=== PATIENT | female | born 1985 | race Caucasian/White ===

== ENCOUNTER → 2025-03-08 09:17 | Outpatient (CLI) | payer OTHER, SELFPAY ==
[2025-03-08 09:55] LABS: Add Manual Diff / Slide Review NO; Basophils Absolute Auto 100 /uL (0-100); Basophils Percent Auto 1.4 % (0-2); Eosinophils Absolute Auto 400 /uL (0-450); Eosinophils Percent Auto 10.4 % (2-4); Hematocrit 42.3 % (36-46); Hemoglobin 14.3 g/dL (12.0-16.0); Lymphocytes Absolute Auto 1000 /uL (1100-4500); Lymphocytes Percent Auto 27.9 % (25-40); Mean Corpuscular HGB Conc 33.8 % (30-36); Mean Corpuscular Volume 91.8 fL (80-100); Monocytes Absolute Auto 300 /uL (0-900); Monocytes Percent Auto 8.2 % (3-14); Neutrophils Absolute Auto 1900 /uL (1500-7000); Neutrophils Percent Auto 52.1 % (50-75); Platelet Count 204 X10^3/uL (150-400); Red Blood Cell Count 4.61 X10^6/uL (4.0-5.2); Red Cell Distribution Width 13.5 % (11.6-14.8); White Blood Cell Count 3.7 X10^3/uL (4.5-11.0)
[2025-03-08 10:03] LABS: Prothrombin Time 10.9 SECONDS (9.4-12.5)
[2025-03-08 10:06] LABS: Hemoglobin A1C% w Est Avg Glu 4.9 % (4.0-6.0); PTT Partial Thromboplastin Tim 35 SECONDS (25.1-36.5)
[2025-03-08 10:22] LABS: Alanine Aminotransferase 30 IU/L (<35); Albumin 4.3 g/dL (3.5-5.0); Albumin Globulin Ratio 1.7 (1.0-2.8); Alkaline Phosphatase 50 U/L (38-126); Aspartate Aminotransferase 32 IU/L (14-36); BUN Creatinine Ratio 19.2 (6-22); Bilirubin Total 1.1 mg/dL (0.2-1.3); Blood Urea Nitrogen 15 mg/dL (7-17); Calcium 8.9 mg/dL (8.4-10.2); Carbon Dioxide 27 mmol/L (22-32); Chloride 104 mmol/L (98-107); Cholesterol 149 mg/dL (140-199); Estimated Glomerular Filt Rate > 60 mL/min (>60); Globulin 2.5 g/dL (1.7-4.1); Glucose 89 mg/dL (70-99); HDL Cholesterol 41 mg/dL (40-60); HEMOLYSIS 15 (0-50); HEMOLYSIS < 15 (0-50); Iron 99 ug/dL (37-170); LDL Cholesterol Calculated 96 mg/dL (<100); Sodium 138 mmol/L (137-145); Total Protein 6.8 g/dL (6.3-8.2); Triglycerides 61 mg/dL (35-150)
[2025-03-08 10:33] LABS: Percent Iron Saturation 37 % (15-50); Total Iron Binding Capacity 269 ug/dL (265-497); Transferrin 212 mg/dL (206-381)
[2025-03-08 10:39] LABS: Vitamin D 25 Hydroxy (D3) 46.1 ng/mL (30.0-100.0)
[2025-03-08 10:40] LABS: Free T3, Triiodothyronine Free 3.71 pg/mL (2.77-5.27); Free T4, Direct Thyroxine 1.69 ng/dL (0.78-2.19)
[2025-03-08 10:41] LABS: Follicle Stimulating Hormone 7.64 mIU/mL; Luteinizing Hormone 4.39 mIU/mL
[2025-03-08 10:54] LABS: Thyroid Stimulating Hormone 0.783 uIU/mL (0.47-4.68)
[2025-03-08 10:56] LABS: Ferritin 31 ng/mL (6-137)
[2025-03-08 11:13] LABS: Vitamin B12 626 pg/mL (239-931)
[2025-03-08 16:40] LABS: HIV 1 & 2 Ab/Ag 4th Gen Combo NEGATIVE (NEGATIVE); Hep C Virus Ab w/Reflex Quant NEGATIVE s/c (NEGATIVE)
[2025-03-09 07:36] LABS: Thyroid Peroxidase Antibodies 267 IU/mL (0-34)
[2025-03-09 16:09] LABS: Anti Thyroglobulin Antibody <1.0 IU/mL (0.0-0.9)
== END ==
PROVIDERS: PCP Family Medicine; Referring Provider Family Medicine; Visit Provider Family Medicine
DX: Z11.59 Encounter for screening for other viral diseases (principal); R53.82 Chronic fatigue, unspecified; F32.A Depression, unspecified; E06.3 Autoimmune thyroiditis; N92.0 Excessive and frequent menstruation with regular cycle; N94.6 Dysmenorrhea, unspecified; Z13.220 Encounter for screening for lipoid disorders; Z11.4 Encounter for screening for human immunodeficiency virus [HIV]; Z13.1 Encounter for screening for diabetes mellitus; Z13.21 Encounter for screening for nutritional disorder
CPT/HCPCS: 36415; 80053; 80061; 82306; 82607; 82728; 83001; 83002; 83036; 83540; 83550; 84439; 84443; 84481; 85025; 85610; 85730; 86376; 86800; 86803; 87389